=== PATIENT | male | born 1950 | race Caucasian/White ===

== ENCOUNTER 2017-08-24 05:16 | Emergency (ER) | payer OTHER ==
[~2017-08-24] VITALS: Ht 172.7 cm; Wt 86.7 kg
[~2017-08-24 05:16] MED LIST: EZET10TA41 PO; OLME40TA30 PO; OXYC-57 PO
[2017-08-24 05:19] VITALS: TEMP 36.6; Ht 172.7 cm; Wt 86.7 kg
[2017-08-24] MEDS ORDERED: AMLO-110 PO (05:44)
[2017-08-24] MEDS ORDERED: RANI150T3 PO (05:44)
[2017-08-24] MEDS ORDERED: ATOR-22 PO (05:44)
[2017-08-24] MEDS ORDERED: OPTIRAY 320 IV PRN (05:45)
[2017-08-24 06:04] LABS: BASO % 0.4 %; BASO ABS # 0.03 K/uL (0-0.2); EOS % 1.6 %; EOS ABS # 0.13 K/uL (0-0.5); HEMOGLOBIN 13.9 g/dL (14.0-18.0); IG# 0.01 K/uL (0.00-0.02); LYMPH ABS # 1.16 K/uL (1.2-3.4); MEAN CELL VOLUME 79.3 fL (80-100); MEAN CORPUSCULAR HEMOGLOBIN 26.9 pg (25-34); MEAN CORPUSCULAR HGB CONC 33.9 g/dl (32-36); MEAN PLATELET VOLUME 8.8 fL (7.4-10.4); MONO % 5.9 %; MONO ABS # 0.49 K/uL (0.11-0.59); NEUT ABS # 6.45 K/uL (1.4-6.5); PLATELET COUNT 269 K/uL (130-400); RED CELL DISTRIBUTION WIDTH CV 15.3 % (11.5-14.5); RED CELL DISTRIBUTION WIDTH SD 43.8 fL (36.4-46.3); WHITE BLOOD COUNT 8.27 K/uL (4.8-10.8)
[2017-08-24 06:21] LABS: ALBUMIN 3.7 gm/dl (3.4-5.0); CALCIUM 8.5 mg/dl (8.5-10.1); CREATININE 1.21 mg/dl (0.60-1.40); POTASSIUM 3.3 mmol/L (3.5-5.1)
[2017-08-24 06:24] LABS: TOTAL PROTEIN 7.7 gm/dl (6.4-8.2)
--- NOTE | 2017-08-24 06:39 | EMERGENCY ROOM VISIT NOTE ---
History Report prepared by Pamela: Jessica Gutierrez Under the Supervision of: Dr. Ragini Key D.O. First contact with patient: 05:23 Chief Complaint: ABDOMINAL PAIN Stated Complaint: LWR LFT SIDE ABDOMINAL PAIN History of Present Illness The patient is a 66 year old male who presents to the Emergency Room with complaints of left lower quadrant abdominal pain which began 3 hours ago. He reports a history of diverticulitis, noting that he last had an episode in 2015. The patient states that in February 2017, Dr. Patel reported he might be developing diverticulitis and to return if his symptoms worsened. The patient states that he was fine before he went to bed. He now reports that he is nauseous, but denies any fevers. Source of History: patient Onset: 3 hours ago Position: abdomen (LLQ) Quality: other (abdominal pain) Timing: other (persistent) Associated Symptoms: + nausea, No fevers Review of Systems See HPI for pertinent positives & negatives. A total of 10 systems reviewed and were otherwise negative. Past Medical & Surgical Diverticulitis, hypertension Social History Smoking Status: Never Smoker Alcohol Use: none Marital Status: Housing Status: lives with significant other Current/Historical Medications Scheduled Amlodipine (Norvasc), 5 MG PO QAM Atorvastatin (Lipitor), 20 MG PO HS Ranitidine Hcl (Zantac), 150 MG PO BID Tamsulosin Hcl (Flomax), 0.4 MG PO HS Scheduled PRN Oxycodone/Acetaminophen 5MG/325MG (Percocet 5MG/325MG), 1 TAB PO Q6H PRN for Pain Allergies Coded Allergies: [place] (Verified Allergy, Severe, MIGRAINE GERMAIN, DEYDRATION, ER VISIT, ) [place] (Verified Allergy, Severe, MIGRAINE GERMAIN, DEHYDRATION, ER VISIT, 08/24) Aspirin (Verified Adverse Reaction, Intermediate, CONFUSION, 08/24/17) Uncoded Allergies: [place] (Allergy, Severe, MIGRAINE, DEHYDRATION, ER VISIT, 08/24/17) Physical Exam Vital Signs Date Time Temp Pulse Resp B/P (MAP) Pulse Ox O2 Delivery O2 Flow Rate FiO2 08/24/17 10:02 75 18 155/62 98 08/24/17 08:14 80 17 159/86 97 Room Air 08/24/17 06:44 76 18 172/96 97 Room Air 08/24/17 05:19 36.6 78 20 177/90 97 Room Air Physical Exam HEENT: Head - normocephalic and atraumatic Pupils are equal, round, and reactive to light. Extraocular eye muscles are intact, and sclera are anicteric. Nose - moist nasal mucosa without discharge. Mouth - moist buccal mucosa. Oropharynx is nonerythematous and there is no tonsillar exudate or edema noted. Neck: Supple; no JVD, nuchal rigidity, cervical lymphadenopathy. Heart: Regular rate and rhythm. There is a normal S1 and S2 with no murmurs, clicks, or gallops appreciated. Lungs: Clear to auscultation bilaterally with no wheezes, rales, or rhonchi. Abdomen: Soft, left lower quadrant pain to palpation, nondistended, with good bowel sounds. There is no CVA tenderness. There are no palpable pulsatile masses or hepatosplenomegaly. There is no guarding, rigidity, or rebound noted. Extremities: No evidence of cyanosis, clubbing, or edema. There are easily palpable peripheral pulses. Skin: warm and dry with good turgor and no rashes. Medical Decision & Procedures ER Provider Diagnostic Interpretation: CT scan of the abdomen/pelvis: Pending Laboratory Results 08/24/17 05:50 Red Blood Count 5.17, Mean Corpuscular Volume 79.3, Mean Corpuscular Hemoglobin 26.9, Mean Corpuscular Hemoglobin Concent 33.9, Mean Platelet Volume 8.8, Neutrophils (%) (Auto) 78.0, Lymphocytes (%) (Auto) 14.0, Monocytes (%) (Auto) 5.9, Eosinophils (%) (Auto) 1.6, Basophils (%) (Auto) 0.4, Neutrophils # (Auto) 6.45, Lymphocytes # (Auto) 1.16, Monocytes # (Auto) 0.49, Eosinophils # (Auto) 0.13, Basophils # (Auto) 0.03 08/24/17 05:50 Test 08/24/17 05:35 08/24/17 05:50 Urine Color YELLOW Urine Appearance CLEAR (CLEAR) Urine pH 6.0 (4.5-7.5) Urine Specific [place] 1.015 (1.000-1.030) Urine Protein NEG (NEG) Urine Glucose (UA) NEG (NEG) Urine Ketones NEG (NEG) Urine Occult Blood 1+ (NEG) Urine Nitrite NEG (NEG) Urine Bilirubin NEG (NEG) Urine Urobilinogen NEG (NEG) Urine Leukocyte Esterase NEG (NEG) Urine WBC (Auto) 0 /hpf (0-5) Urine RBC (Auto) 0-4 /hpf (0-4) Urine Hyaline Casts (Auto) 0 /lpf (0-5) Urine Epithelial Cells (Auto) 0-5 /lpf (0-5) Urine Bacteria (Auto) NEG (NEG) White Blood Count 8.27 K/uL (4.8-10.8) Red Blood Count 5.17 M/uL (4.7-6.1) Hemoglobin 13.9 g/dL (14.0-18.0) Hematocrit 41.0 % (42-52) Mean Corpuscular Volume 79.3 fL (80-100) Mean Corpuscular Hemoglobin 26.9 pg (25-34) Mean Corpuscular Hemoglobin Concent 33.9 g/dl (32-36) Platelet Count 269 K/uL (130-400) Mean Platelet Volume 8.8 fL (7.4-10.4) Neutrophils (%) (Auto) 78.0 % Lymphocytes (%) (Auto) 14.0 % Monocytes (%) (Auto) 5.9 % Eosinophils (%) (Auto) 1.6 % Basophils (%) (Auto) 0.4 % Neutrophils # (Auto) 6.45 K/uL (1.4-6.5) Lymphocytes # (Auto) 1.16 K/uL (1.2-3.4) Monocytes # (Auto) 0.49 K/uL (0.11-0.59) Eosinophils # (Auto) 0.13 K/uL (0-0.5) Basophils # (Auto) 0.03 K/uL (0-0.2) RDW Standard Deviation 43.8 fL (36.4-46.3) RDW Coefficient of Variation 15.3 % (11.5-14.5) Immature Granulocyte % (Auto) 0.1 % Immature Granulocyte # (Auto) 0.01 K/uL (0.00-0.02) Anion Gap 4.0 mmol/L (3-11) Est Creatinine Clear Calc Drug Dose 62.6 ml/min Estimated GFR () 70.9 Estimated GFR (Non- 61.1 BUN/Creatinine Ratio 17.3 (10-20) Calcium Level 8.5 mg/dl (8.5-10.1) Total Bilirubin 0.6 mg/dl (0.2-1) Direct Bilirubin 0.1 mg/dl (0-0.2) Aspartate Amino Transf (AST/SGOT) 26 U/L (15-37) Alanine Aminotransferase (ALT/SGPT) 31 U/L (12-78) Alkaline Phosphatase 83 U/L (45-117) Total Protein 7.7 gm/dl (6.4-8.2) Albumin 3.7 gm/dl (3.4-5.0) Procedure ED Course 0524: Past medical records reviewed. The patient was evaluated in room B3. A complete history and physical exam was performed. IV lock was established. Labs were drawn as above. 0545: The patient declined wanting anything for pain. He went for CT scan of the abdomen/pelvis. 0630: The patient was signed off to Dr. Laura at the change of shift. Medical Decision The patient is a 66 year old male who presents to the ED with abdominal pain. Differential diagnosis includes diverticulitis, colitis, cystitis, ureteral colic, and pyelonephritis. Lab results showed: urine positive for +1 blood, glucose 108, normal LFTs, BUN 21, creatinine 1.2, potassium 3.3., normal white count, and stable H&H. Cystic avgyo-dcey-xpz male patient presents to the emergency department with left lower quadrant abdominal pain that started suddenly. The patient has a history of diverticulitis and believes that may be what is occurring again. He denies any constipation, diarrhea or associated symptoms. He had been told by a previous physician that if he were to develop the symptoms again that he should seek attention right away because he previously had a diverticular abscess. Laboratory studies were fairly unremarkable. The patient will go for CT scan of the abdomen/pelvis. The case was signed out to Dr. Castaneda change of shift awaiting the results of the CAT scan. Medication Reconcilliation Current Medication List: was personally reviewed by me Blood Pressure Screening Patient's blood pressure: Elevated blood pressure Impression Primary Impression: Abdominal pain, left lower quadrant Scribe Attestation The scribe's documentation has been prepared under my direction and personally reviewed by me in its entirety. I confirm that the note above accurately reflects all work, treatment, procedures, and medical decision making performed by me. Departure Information Prescriptions Tamsulosin Hcl (FLOMAX) 0.4 Mg Cap 0.4 MG PO HS for 10 Days, #10 CAP Prov: Latrell Laura D.O. 08/24/17 Oxycodone/Acetaminophen 5MG/325MG (PERCOCET 5MG/325MG) Tab 1 TAB PO Q6H Y for Pain, #20 TAB Prov: Latrell Laura D.O. 08/24/17 Referrals Alejo Jorgensen (PCP) Patient Instructions My [facility]
--- NOTE | 2017-08-24 07:04 | DIAGNOSTIC IMAGING REPORT ---
ABD/PELVIS IV CONTRAST ONLY CLINICAL HISTORY: 66 years-old Male presenting with left lower quadrant abdominal pain, clinical concern for diverticulitis.. TECHNIQUE: Multidetector CT of the abdomen and pelvis was performed after the administration of intravenous contrast. IV contrast: 93 mL of Optiray 320. A dose lowering technique was used consistent with the principles of ALARA (as low as reasonably achievable). COMPARISON: None. CT DOSE (mGy.cm): The estimated cumulative dose is 457.47 mGy.cm. FINDINGS: Market Research Intern topogram: Unremarkable. Lung bases: Minimal basilar opacities, likely atelectasis. Solid peripheral nodules in the right middle lobe, the largest measuring 9 mm (series 3 image 7). Normal heart size. No pericardial or pleural effusion. Liver: Normal morphology. Well-defined hypodensities in the liver likely hepatic cysts. Patent hepatic vasculature. Biliary: No intrahepatic or extrahepatic biliary ductal dilatation. Normal gallbladder. Pancreas: Normal. Spleen: Normal. Adrenal glands: 14 mm indeterminate nodule in the lateral limb of the left adrenal gland. Right adrenal gland normal. Kidneys and ureters: Exophytic prominent hypodensity arising from the left kidney, which may contain a single thin septation (series 3 image 149). Mild left pelvocaliectasis and urothelial thickening with periureteral and perihilar fat stranding. An obstructing 8 mm calculus is noted at the proximal left ureter immediately distal to the left ureteropelvic junction. A nonobstructing lower pole 6 mm calculus is also noted. The remainder of the left ureter is normal. The right kidney is normal. No right renal calculi. Normal right ureter. Bladder: Normal. No bladder calculi. Pelvic organs: Prostate enlargement likely secondary to benign prostatic hyperplasia. Bowel: Diverticulosis of the sigmoid colon with wall thickening. No pericolonic fat stranding. Few scattered additional colonic diverticula. The appendix is normal. No bowel obstruction. Small hiatal hernia. Peritoneal cavity: No free fluid or intraperitoneal gas. Lymph nodes: No enlarged lymph nodes in the abdomen or pelvis. Vasculature: Atherosclerosis of the normal caliber abdominal aorta. IVC patent. Abdominal wall: Diastasis of the rectus abdominis. Bilateral gynecomastia. Musculoskeletal: Degenerative changes of the spine. Pars defects of L4 noted. IMPRESSION: 1. Obstructing 8 mm calculus at the proximal left ureter immediately distal to the left ureteropelvic junction. This results in mild left hydronephrosis and significant reactive changes of the urothelium. 2. Nonobstructing 6 mm left renal calculus. 3. Diverticulosis without evidence of chronic diverticular disease/circular muscle hyperplasia. No convincing evidence of acute diverticulitis. 4. 14 mm indeterminate left adrenal gland nodule. This is likely a benign adenoma but is incompletely characterized on this examination. 5. Solid right middle lobe pulmonary nodules, the largest measuring 9 mm. Follow-up per [place] Society 2017 recommendations below. Please refer to below summary of Fleischner Society 2017 recommendations for follow-up of incidental CT nodules (H Demar et al. Guidelines for management of incidental pulmonary nodules detected on CT images: From the Fleischner Society 2017. Radiology 2017; 284: 228-243.) SOLID NODULES Single nodule; size < 6 mm * Low risk patients: No routine follow-up * High risk patients: Optional CT at 12 months Single nodule; size 6-8 mm * Low risk patients: CT at 6-12 months, then consider CT at 18-24 months * High risk patients: CT at 6-12 months, then at 18-24 months Single nodule; size > 8 mm * Either low or high risk patients: Considered CT at 3 months, PET/CT, or tissue sampling Multiple nodules; size < 6 mm * Low risk patients: No routine follow up * High risk patients: Optional CT at 12 months Multiple nodules; size 6-8 mm * Low risk patients: CT at 3-6 months, then consider CT at 18-24 months * High risk patients: CT at 3-6 months, then at 18-24 months Multiple nodules; size > 8 mm * Low risk patients: CT at 3-6 months, then consider at 18-24 months * High risk patients: CT at 3-6 months, then at 18-24 months SUBSOLID NODULES Single ground-glass nodule * Nodule size < 6 mm: No routine follow-up * Nodule size > or = 6 mm: CT at 6-12 months to confirm persistence, then CT every 2 years until 5 years Single part-solid nodule * Nodule size < 6 mm: No routine follow-up * Nodules size > or = 6 mm: CT at 3-6 months to confirm persistence. If unchanged and solid component remains < 6 mm, annual CT should be performed for 5 years Multiple nodules * Nodule size < 6 mm: CT at 3-6 months. If stable, consider CT at 2 and 4 years. * Nodules size > or = 6 mm: CT at 3-6 months. Subsequent management based on the most suspicious nodule(s) NOTE: These guidelines apply to incidental nodules. These guidelines do not apply to patients younger than 35 years, immunocompromised patients, or patients with cancer. * Low risk patients: Minimal or absent history of smoking and/or other known risk factors * High risk patients: History of smoking, exposure to other carcinogens, emphysema, fibrosis, upper lobe location, family history of lung cancer, etc. If a nodule up to 8 mm is partly solid or is ground glass, further follow-up is required after 24 months to exclude possible slow growing adenocarcinoma. Electronically signed by: Imtiaz Vail M.D. 08/24/2017 7:03 AM Dictated Date/Time: 08/24/2017 6:54 AM
--- NOTE | 2017-08-24 09:40 | EMERGENCY ROOM VISIT NOTE ---
ED Visit Note This is a 66-year-old male who presents to the ED and was signed out to me by Dr. Key. CT scan was pending. Patient's blood work was unremarkable as was urinalysis and chemistry panel. CT scan result as noted below. IMPRESSION: 1. Obstructing 8 mm calculus at the proximal left ureter immediately distal to the left ureteropelvic junction. This results in mild left hydronephrosis and significant reactive changes of the urothelium. 2. Nonobstructing 6 mm left renal calculus. 3. Diverticulosis without evidence of chronic diverticular disease/circular muscle hyperplasia. No convincing evidence of acute diverticulitis. 4. 14 mm indeterminate left adrenal gland nodule. This is likely a benign adenoma but is incompletely characterized on this examination. 5. Solid right middle lobe pulmonary nodules, the largest measuring 9 mm. Follow-up per [place] [employer] 2017 recommendations below. Please refer to below summary of Fleischner Society 2017 recommendations for follow-up of incidental CT nodules (H Demar et al. Guidelines for management of incidental pulmonary nodules detected on CT images: From the Fleischner Society 2017. Radiology 2017; 284: 228-243.) SOLID NODULES Single nodule; size < 6 mm * Low risk patients: No routine follow-up * High risk patients: Optional CT at 12 months Single nodule; size 6-8 mm * Low risk patients: CT at 6-12 months, then consider CT at 18-24 months * High risk patients: CT at 6-12 months, then at 18-24 months Single nodule; size > 8 mm * Either low or high risk patients: Considered CT at 3 months, PET/CT, or tissue sampling The patient was told the results of the test. He was comfortable. I spoke with Debra Bailey from Dr. Abarca's office. The patient will be given an appointment. Their office will call him for follow-up. He was felt to be stable for discharge. The patient was discharged with a prescription for Percocet, Flomax and a urine strainer. He was also advised to follow-up with family doctor with regards to follow-up on the lung nodule. The patient was not having any symptoms or discomfort at the time of his disposition.
[2017-08-24] MEDS ORDERED: OXYC-57 PO (09:44)
[2017-08-24] MEDS ORDERED: TAMS0.4C38 PO (09:44)
[2017-08-24 10:02] VITALS: BP 155/62; PULSE 75; O2SAT 98
== END 2017-08-24 10:05 | disposition home or self-care (01) ==
LOC: C.EDB 05:17
DX: R10.32 Left lower quadrant pain (principal); Z79.899 Other long term (current) drug therapy; Z88.6 Allergy status to analgesic agent; Z91.018 Allergy to other foods

== ENCOUNTER → 2017-09-04 | Outpatient (CLI) | payer OTHER ==
[~2017-09-04] MED LIST changes: +AMLO-110 PO; +ATOR-22 PO; -EZET10TA41 PO; -OLME40TA30 PO; +TAMS0.4C38 PO
--- NOTE | 2017-09-04 16:06 | DIAGNOSTIC IMAGING REPORT ---
TWO VIEW CHEST CLINICAL HISTORY: Nephrolithiasis. FINDINGS: PA and lateral chest radiographs are compared to study dated 08/11/2006. The cardiomediastinal silhouette is unremarkable. There is atherosclerotic calcification of the thoracic aorta. The lungs and pleural spaces are clear. There is no pneumothorax. The skeletal structures are osteopenic. The bony thorax appears intact. A left shoulder arthroplasty is in place. Degenerative changes noted throughout the thoracic spine. IMPRESSION: No active disease in the chest. Electronically signed by: Charles Tenorio M.D. 09/04/2017 4:05 PM Dictated Date/Time: 09/04/2017 4:04 PM
[2017-09-04 16:13] LABS: BASO % 0.3 %; BASO ABS # 0.02 K/uL (0-0.2); EOS % 1.5 %; EOS ABS # 0.09 K/uL (0-0.5); HEMATOCRIT 40.1 % (42-52); HEMOGLOBIN 13.7 g/dL (14.0-18.0); LYMPH % 23.2 %; LYMPH ABS # 1.35 K/uL (1.2-3.4); MEAN CORPUSCULAR HEMOGLOBIN 27.3 pg (25-34); MEAN CORPUSCULAR HGB CONC 34.2 g/dl (32-36); MEAN PLATELET VOLUME 9.2 fL (7.4-10.4); MONO % 7.9 %; MONO ABS # 0.46 K/uL (0.11-0.59); NEUT % 67.1 %; PLATELET COUNT 258 K/uL (130-400); RED CELL DISTRIBUTION WIDTH CV 15.5 % (11.5-14.5); RED CELL DISTRIBUTION WIDTH SD 45.3 fL (36.4-46.3); WHITE BLOOD COUNT 5.82 K/uL (4.8-10.8)
[2017-09-04 16:30] LABS: BLOOD UREA NITROGEN 18 mg/dl (7-18); CALCIUM 8.7 mg/dl (8.5-10.1); CARBON DIOXIDE 28 mmol/L (21-32); CREATININE 1.22 mg/dl (0.60-1.40); GLUCOSE 94 mg/dl (70-99); POTASSIUM 3.8 mmol/L (3.5-5.1); SODIUM 140 mmol/L (136-145)
== END ==
LOC: C.RAD 15:14
PROVIDERS: ATTEND Urology
DX: N20.0 Calculus of kidney (principal)

== ENCOUNTER 2017-09-23 09:25 | Day surgery (SDC) | payer OTHER ==
[2017-08-26 12:52] VITALS: BMI 28.0
[~2017-09-23] VITALS: Ht 174 cm; Wt 86.4 kg
[~2017-09-23 09:25] MED LIST changes: +ATROPINE SULFATE 0.1 MG/ML 5ML SYR IV PRN; +CIPROFLOXACIN / D5W 400 MG IV SCH; +EpHEDrine SULFATE INJ 50 MG/ML AMP IV PRN; +FENTANYL CITRATE INJ 50 MCG/1 ML 2 ML VIAL IV PRN; +LACTATED RINGER'S 1000ML 1,000 ML IV SCH; +ONDANSETRON INJ 2 MG/ML 2 ML VIAL IV PRN; -TAMS0.4C38 PO
[2017-09-23 10:03] VITALS: BP 159/95; PULSE 81; TEMP 36.6; O2SAT 95; Ht 174 cm; Wt 86.4 kg
[2017-09-23] MEDS ORDERED: FENTANYL CITRATE INJ 50 MCG/1 ML 2 ML VIAL ONE ×2 (10:07→11:01)
--- NOTE | 2017-09-23 10:22 | History & Physical Bridge Note ---
H&P Re-Evaluation Bridge Note: I have examined the patient, reviewed the History & Physical and in the interval since the performance of the History & Physical I have noted the following changes of clinical significance: No changes noted
[2017-09-23] MEDS ORDERED: Cysto-Conray II 17.2% 250ML BOTTLE ONE (10:24)
[2017-09-23] MEDS ORDERED: OXYCODONE/ACETAMINOPHEN 7.5-325 TAB PO PRN (10:30)
[2017-09-23] MEDS ORDERED: OXYC-57 PO (10:31)
[2017-09-23] MEDS ORDERED: PHEN-775 PO (10:32)
[2017-09-23] MEDS ORDERED: CIPR-255 PO (10:32)
--- NOTE | 2017-09-23 10:34 | Discharge Instructions ---
Discharge Instructions Date of Service September 23, 2017. Admission Reason for Admission: Nephrolithiasis Discharge Discharge Diagnosis / Problem: Left Stones Discharge Goals Goal(s): Decrease discomfort, Improve function Activity Recommendations Activity Limitations: resume your previous activity Lifting Limitations: gradually increase as tolerated Exercise/Sports Limitations: gradually increase as tolerated Shower/Bathe: no limitations . Instructions / Follow-Up Instructions / Follow-Up May have blood in urine. May have pelvic discomfort. May have pain or other issues. Call if any fevers or chills or other issues. Current Hospital Diet Patient's current hospital diet: Discharge Diet Recommended Diet: Regular Diet Procedures Procedures Performed: Cystoscopy with left ureteroscopy and stone treatment. Pending Studies Studies pending at discharge: no Medical Emergencies . Who to Call and When: Medical Emergencies: If at any time you feel your situation is an emergency, please call 911 immediately. . Non-Emergent Contact Non-Emergency issues call your: Primary Care Provider, Urologist Call Non-Emergent contact if: you have a fever, temperature is above 101, temperature is above 101.5, your pain is not controlled, your pain is worsening , your pain is unusual for you, your pain is concerning you . . "Provider Documentation" section prepared by Jorge Alberto Arteaga,. .
[2017-09-23] MEDS ORDERED: LIDOCAINE HCL 2% 2 ML VIAL (20MG/ML) ONE (10:50)
[2017-09-23] MEDS ORDERED: PROPOFOL IV EMULSION 10 MG/ML 20 ML VIAL ONE (10:50)
[2017-09-23] MEDS ORDERED: DEXAMETHASONE SOD INJ 4 MG/ML VIAL ONE (10:50)
[2017-09-23] MEDS ORDERED: EpHEDrine SULFATE INJ 50 MG/ML AMP ONE (10:50)
[2017-09-23] MEDS ORDERED: ONDANSETRON INJ 2 MG/ML 2 ML VIAL ONE (10:50)
--- NOTE | 2017-09-23 11:57 | [facility] Operative Report ---
Operative Report Operative Date September 23, 2017. Pre-Operative Diagnosis Left Stone Post-Operative Diagnosis Same Procedure(s) Performed Cystoscopy with Left Retrograde pyelogram, stent, Ureteroscopy, laser lithotripsy and stone basket extraction. Surgeon Chandler Estimated Blood Loss Minimal Findings Proximal Left stone with left renal stone Specimens Stone fragment. Drains 6 Fr Multilength Anesthesia Type General Complication(s) none Disposition Recovery Room / PACU Indications Large obstructing left stone with left renal stones. Risks and benefits discussed. Description of Procedure Patient was consented and brought back to the operating room. Patient was placed under anesthesia in the supine position and moved to the dorsal lithotomy position. Patient was prepped and draped in the regular sterile fashion. A time out was completed. A 30degree Cystoscope was placed into the bladder and the entire bladder was examined. The UO's were identified. The UO was cannulized with a catheter and a retrograde pyelogram was completed. A wire was then placed. A strictured area was appreciated in the distal ureter. This was dilated to allow placement of a long rigid ureteroscope. This was taken into the distal ureter and a second wire was placed. The rigid scope was removed. A ureteral access sheath and second safety wire was placed. The flexible ureteroscope was taken into the left ureter. The entire ureter and renal pelvis were examined. The stones were identified. A laser fiber was selected and the stones were pulverized to dust and small fragments. Larger fragments were grasped and removed and sent for analysis. The entire area was once again examined. No residual large fragments or areas of concern were noted. The scope was slowly removed with the wire left in place. Contrast was placed through the scope for a pyelogram to assist in stent placement. The entire ureter was examined as the scope was slowly removed. No obstructions or other areas of concern were noted. The distal ureter had multiple areas where dilatation had been completed. No other findings. With the wire in place, it was backloaded onto the cystoscope, and a 6 Fr Double J stent was placed. It was confirmed with fluoroscopy. With the stent in place, the bladder was emptied. The scope was removed. The patient was cleaned, aroused from anesthesia, and transferred to the pacu in stable condition having tolerated the procedure well with no complications. I was present and participated in all aspects of the procedure. The patient will be monitored in the PACU until transferred. I attest to the content of the Intraoperative Record and any orders documented therein. Any exceptions are noted below.
--- NOTE | 2017-09-23 12:30 | DIAGNOSTIC IMAGING REPORT ---
RETROGRADE INCLUDES KUB HISTORY: LEFT LASER LITHOTRIPSY, STENT INSERTION FLUOROSCOPY TIME: 3 minutes and 52 seconds. FINDINGS: 4 fluoroscopic spot images were submitted for review. Initial images demonstrate retrograde opacification of the left renal collecting system. This is followed by placement of a guidewire into the left ureter and a left ureteral stent. The ureteral stent appears in good position. IMPRESSION: Fluoroscopy provided for left ureteral stent placement. Electronically signed by: Taj Watters M.D. 09/23/2017 12:29 PM Dictated Date/Time: 09/23/2017 12:28 PM
[2017-09-23 12:50] VITALS: BP 152/81; PULSE 64; TEMP 36.3; O2SAT 95
[2017-09-23 13:45] VITALS: BP 130/66; PULSE 56; TEMP 36.2; O2SAT 98
--- NOTE | 2017-09-23 13:48 | Anesthesiology Progress Note ---
Anesthesia Post Op Note Date & Time September 23, 2017 at 13:48 Vital Signs Pain Intensity: 0 Vital Signs Past 12 Hours Date Time Temp Pulse Resp B/P (MAP) Pulse Ox O2 Delivery O2 Flow Rate FiO2 09/23/17 13:45 36.2 56 18 130/66 98 Room Air 09/23/17 12:50 36.3 64 18 152/81 95 Room Air 09/23/17 12:40 36.4 09/23/17 12:37 68 16 94 09/23/17 12:37 67 09/23/17 12:35 147/75 09/23/17 12:32 61 20 09/23/17 12:32 60 20 97 09/23/17 12:31 149/70 09/23/17 12:27 67 14 96 09/23/17 12:27 67 14 09/23/17 12:25 147/79 09/23/17 12:22 70 10 100 09/23/17 12:22 70 10 09/23/17 12:20 135/77 09/23/17 12:17 58 14 99 09/23/17 12:17 58 09/23/17 12:15 130/78 09/23/17 12:12 65 11 100 09/23/17 12:12 63 11 09/23/17 12:10 141/79 09/23/17 12:07 66 12 09/23/17 12:07 65 12 140/79 100 09/23/17 12:02 36.1 63 16 140/79 100 Oxymask 5 09/23/17 10:03 36.6 81 18 159/95 (116) 95 Room Air Notes Mental Status: alert / awake / arousable, participated in evaluation Pt Amnestic to Procedure: Yes Nausea / Vomiting: adequately controlled Pain: adequately controlled Airway Patency, RR, SpO2: stable & adequate BP & HR: stable & adequate Hydration State: stable & adequate Anesthetic Complications: no major complications apparent
[2017-09-23 14:25] VITALS: BP 147/72; PULSE 89; TEMP 36.8; O2SAT 98
== END 2017-09-23 15:05 | disposition home or self-care (01) ==
LOC: C.ACU 09:25
PROVIDERS: ATTEND Urology
DX: N20.1 Calculus of ureter (principal); M19.90 Unspecified osteoarthritis, unspecified site; E78.00 Pure hypercholesterolemia, unspecified; E78.5 Hyperlipidemia, unspecified; K21.9 Gastro-esophageal reflux disease without esophagitis; I10 Essential (primary) hypertension; Z82.49 Family history of ischemic heart disease and other diseases of the circulatory system; Z83.3 Family history of diabetes mellitus; Z79.899 Other long term (current) drug therapy; Z88.6 Allergy status to analgesic agent

== ENCOUNTER 2022-05-08 05:04 | Observation (INO) ==
--- NOTE | 2022-04-13 13:46 | PAT Medication Instructions ---
Medication Instructions Date of Service April 13, 2022 Home Medications atorvastatin 20 mg tablet 20 mg PO QAM amlodipine 5 mg tablet 5 mg PO QAM albuterol sulfate 90 mcg/actuation aerosol inhaler 2 puff inhalation Q6H PRN famotidine 20 mg tablet (Acid Continuous Churn Buttermaker (famotidine)) 20 mg PO QAM PRN fluticasone propionate 50 mcg/actuation nasal spray,suspension (Allergy Relief (fluticasone)) 1 spray intranasal QAM PRN meloxicam 15 mg tablet 15 mg PO QAM ascorbic acid (vitamin C) 500 mg chewable tablet (Vitamin C) 500 mg PO QAM ibuprofen 100 mg tablet 200 mg PO Q6H PRN multivitamin with minerals (Men's One Daily tablet) 1 tab PO QAM zinc 50 mg tablet 50 mg PO QAM ASK your surgeon for instructions meloxicam 15 mg tablet 15 mg PO QAM ibuprofen 100 mg tablet 200 mg PO Q6H PRN DO NOT take the morning of surgery ascorbic acid (vitamin C) 500 mg chewable tablet (Vitamin C) 500 mg PO QAM multivitamin with minerals (Men's One Daily tablet) 1 tab PO QAM zinc 50 mg tablet 50 mg PO QAM Take morning of surgery With a small sip of water, OTHERWISE NOTHING TO EAT OR DRINK AFTER MIDNIGHT: atorvastatin 20 mg tablet 20 mg PO QAM amlodipine 5 mg tablet 5 mg PO QAM albuterol sulfate 90 mcg/actuation aerosol inhaler 2 puff inhalation Q6H PRN(use if needed; please bring with you to hospital day of surgery if possible) famotidine 20 mg tablet (Acid Continuous Churn Buttermaker (famotidine)) 20 mg PO QAM PRN(if needed) fluticasone propionate 50 mcg/actuation nasal spray,suspension (Allergy Relief (fluticasone)) 1 spray intranasal QAM PRN(if needed) Take evening before surgery albuterol sulfate 90 mcg/actuation aerosol inhaler 2 puff inhalation Q6H PRN(if needed) Other Notes If you have any questions please call us at [phone] or [phone] or [phone] or [phone]
--- NOTE | 2022-04-16 12:53 | Anesthesiology Consultation ---
Date of Service April 16, 2022 Assessment & Plan (1) Encounter for pre-operative examination: - Outpatient joint assessment: Patient is currently scheduled for inpatient pathway. If re-evaluated pending system levels during current pandemic/surgeon requests outpatient pathway, patient is acceptable candidate for outpatient joint program from anesthesia standpoint pending surgeon's office assessment of pt motivation/support/completion of same day joint program preop requirements. Chart Review Chart Review: Acceptable Risk for Surgery and Patient seen in Pre Admission Testing Teaching & Discussion Pre-Anesthesia Teaching/Discussion Notes: Instructed NPO after midnight before surgery, except medications with 15 cc of water. Medication instructions provided according to the PAT guidelines. History Surgery Operation Date: 05/08/22 11:40 Proposed Procedures p Right Anterior Total Hip Arthroplasty - Tor Tenorio DO Height/Weight Height: 5 ft 8 in Weight: 88.904 kg Allergies Allergy/AdvReac Type Severity Reaction Status Date / Time lemon AdvReac Severe Migraine Verified 04/13/22 11:20 [place] AdvReac Severe Migraine Verified 04/13/22 11:20 orange AdvReac Severe Migraine Verified 04/13/22 11:20 aspirin AdvReac Intermediate Confusion Verified 04/13/22 11:20 [place] [employer] AdvReac Unknown Migraine Verified 04/14/22 13:39 Medications Home Medications Medication Instructions Recorded Confirmed Last Taken atorvastatin 20 mg tablet 20 mg PO QAM #0 tabs 08/24/17 04/13/22 01/16/18 23:00 amlodipine 5 mg tablet 5 mg PO QAM 01/04/18 04/13/22 01/17/18 10:00 albuterol sulfate 90 mcg/actuation 2 puff inhalation Q6H PRN 03/05/22 04/13/22 Unknown aerosol inhaler Shortness Of Breath famotidine 20 mg tablet (Acid 20 mg PO QAM PRN Acid Reflux 03/05/22 04/13/22 Unknown Notched Blade Loader (famotidine)) fluticasone propionate 50 1 spray intranasal QAM PRN 03/05/22 04/13/22 Unknown mcg/actuation nasal Congestion spray,suspension (Allergy Relief (fluticasone)) meloxicam 15 mg tablet 15 mg PO QAM 03/05/22 04/13/22 Unknown ascorbic acid (vitamin C) 500 mg 500 mg PO QAM 04/13/22 04/13/22 Unknown chewable tablet (Vitamin C) ibuprofen 100 mg tablet 200 mg PO Q6H PRN Pain 04/13/22 04/13/22 Unknown multivitamin with minerals (Men's 1 tab PO QAM 04/13/22 04/13/22 Unknown One Daily tablet) zinc 50 mg tablet 50 mg PO QAM 04/13/22 04/13/22 Unknown Past Medical History Medical History (Updated 04/16/22 @ 13:06 by Soo Pinto PA-C) 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 Exercise / Class Metabolic Activity II 4-5 Yardwork/Stairs/Walk up hill (denies CP or SOB with 1 FOS) Past Family History Family History Father Heart disease Mother Hypertension Diabetes Past Surgical History Surgical History (Updated 04/16/22 @ 13:06 by Soo Pinto PA-C) H/O abdominal surgery childhood History of carpal tunnel release rt. History of colonoscopy History of cystoscopy History of detached retina repair History of esophagogastroduodenoscopy (EGD) History of herniorrhaphy History of tonsillectomy History of tooth extraction History of total shoulder replacement Left (2005) Past Anesthesia History No Hx of Anesthesia Complications and No Family Hx of Anesthesia Complications History of PONV No Hx of PONV and No Hx of Motion Sickness Social History Smoking Status: Never smoker Do You Dip or Chew Tobacco: No Hx Alcohol Use: No Hx Substance Use: No substance use type: does not use Review of Systems Occasionally wakes at night choking when experiencing post nasal drip, ongoing x yrs; denies change or worsening; denies h/o snoring or witnessed apneas. Patient denies chest pain, shortness of breath, dyspnea on exertion, fever, chills, cough, wheezing, or palpitations. Physical Exam Vital Signs Vitals BP 148/78 P 77 TEMP 98.5 SP02 96% on RA RESP 18 Physical Full cervical extension range of motion without pain TMD 3.5 finger breadths Mallampati Score 2 Dentition: intact, chipped tooth right back, permanent bridge front, implants right upper side and left lower side; denies loose teeth Lungs: normal respiratory effort. Clear throughout to auscultation, no adventitious breath sounds Cardiac: regular rate and rhythm, no murmurs noted Carotid arteries: negative bruit bilat Lab Results Anesthesia Preop Results Results Anesthesia Widget: WBC 10.44 K/ul (4.8-10.8) 04/16/22 Hgb 14.0 g/dl (14.0-18.0) 04/16/22 Hct 41.6 % (40.1-51.0) 04/16/22 Plt 288 K/uL (130-400) 04/16/22 Na 139 mmol/L (136-145) 04/16/22 K 4.1 mmol/L (3.5-5.1) 04/16/22 Cl 103 mmol/L (98-107) 04/16/22 CO2 29 mmol/L (21-32) 04/16/22 BUN 15 mg/dl (6-23) 04/16/22 Creat 1.03 mg/dl (0.6-1.4) 04/16/22 Glucose Level 96 mg/dl (70-99(Fasting)) 04/16/22 PT 10.6 Seconds (9.0-12.0) 04/16/22 PTT 31.0 Seconds (21.0-31.0) 04/16/22 INR 1.0 (0.9-1.1) 04/16/22 Blood Type O Positive 04/16/22 Antibody Screen NEGATIVE 04/16/22 Testing Electrocardiogram Date: 04/16/22 NSR, rate 72 bpm Chest X-Ray Date: 09/11/21 No evidence of acute cardiopulmonary disease COVID-19 Risk Screen Screening Information COVID-19 Screen Date: 04/16/22 Exposure 21 Days Family/Household +COVID Last 21 Days: No Exposure 10 Days Any COVID Exposure Last 10 Days: No Symptoms Last 10 Days Experienced COVID Sx Last 10 Days: No + COVID 0-90 Days COVID + in Last 0-90 Days: No
--- NOTE | 2022-05-07 13:58 | History & Physical Report ---
Date of Service May 07, 2022 Assessment & Plan (1) Osteoarthritis of hip: We will proceed with a right anterior total arthroplasty. Postoperatively he will be in our outpatient joint protocol. He will be placed on aspirin for DVT prophylaxis. He will be followed up by [facility] the following day. History of Present Illness Chief Complaint: Osteoarthritis of the right hip. Primary Care Provider: Alejo Jorgensen PA-C Matias is a 71-year-old male who has had increasing and more debilitating right hip pain over the course of the past year. No injury, falls, or trauma. He has fairly significant groin and buttock pain. It is progressively getting to point where he has been using a walker to ambulate and even crutches. He is at the point now where he has a difficult time doing his activities of daily living. X-rays and clinical examination been diagnostic for advanced osteoarthritis of the right hip. After failing conservative treatment, he has elected proceed with a right anterior total hip arthroplasty.. Allergies Allergy/AdvReac Type Severity Reaction Status Date / Time lemon AdvReac Severe Migraine Verified 04/13/22 11:20 [place] AdvReac Severe Migraine Verified 04/13/22 11:20 orange AdvReac Severe Migraine Verified 04/13/22 11:20 aspirin AdvReac Intermediate Confusion Verified 04/13/22 11:20 [place] [employer] AdvReac Unknown Migraine Verified 04/14/22 13:39 Home Medications Medication Instructions Recorded Confirmed Type atorvastatin 20 mg tablet 20 mg PO QAM #0 tabs 08/24/17 04/13/22 History amlodipine 5 mg tablet 5 mg PO QAM 01/04/18 04/13/22 History albuterol sulfate 90 mcg/actuation 2 puff inhalation Q6H PRN 03/05/22 04/13/22 History aerosol inhaler Shortness Of Breath famotidine 20 mg tablet (Acid 20 mg PO QAM PRN Acid Reflux 03/05/22 04/13/22 History Novelty Chain Maker (famotidine)) fluticasone propionate 50 1 spray intranasal QAM PRN 03/05/22 04/13/22 History mcg/actuation nasal Congestion spray,suspension (Allergy Relief (fluticasone)) meloxicam 15 mg tablet 15 mg PO QAM 03/05/22 04/13/22 History ascorbic acid (vitamin C) 500 mg 500 mg PO QAM 04/13/22 04/13/22 History chewable tablet (Vitamin C) ibuprofen 100 mg tablet 200 mg PO Q6H PRN Pain 04/13/22 04/13/22 History multivitamin with minerals (Men's 1 tab PO QAM 04/13/22 04/13/22 History One Daily tablet) zinc 50 mg tablet 50 mg PO QAM 04/13/22 04/13/22 History Past Med/Surg History Medical History 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 History of colonoscopy History of cystoscopy History of detached retina repair History of esophagogastroduodenoscopy (EGD) History of herniorrhaphy History of tonsillectomy History of tooth extraction History of total shoulder replacement Left (2005) Family History Father Heart disease Mother Hypertension Diabetes Social History Smoking Status: Never smoker Second Hand Exposure: No; Hx Alcohol Use: No Hx Substance Use: No Preferred Language: Irish Communication Ability: Effective Groover Operator Required: No Beliefs That Will Affect Care: None marital status: Current Living Situation: Spouse and Family current occupational status: employed Feels Safe at Home: Yes Assistive Devices: Cane, Glasses, Walker and Other Review of Systems All systems reviewed & are unremarkable except as noted in HPI & below. Physical Exam On physical examination of the right hip, he has decreased range of motion. He has pain with forced internal and external rotation.. Constitutional WD/WN, vitals as above Eyes PERRL, conjunctivae normal, anicteric sclerae ENMT external ear and nose normal, oropharynx normal Neck trachea midline, no thyromegaly Respiratory normal respiratory effort, lungs clear to auscultation Cardiovascular RRR, no murmur, no edema Gastrointestinal (Abdomen) normal bowel sounds, soft, nontender, no hepatosplenomegaly Skin no rashes, warm and dry Psychiatric A+Ox3, euthymic affect Results & Data Results & Data Laboratory Results . Diagnostic Findings Postoperative x-rays of the right hip show the prosthesis to be in anatomic alignment without any evidence of fracture, desiccation, or loosening. PG Care Time/CCT Total # of Minutes Spent Total Time Spent with Patient: Total time spent is greater than 50% in coordination of care (as documented) at patient's floor/unit and/or counseling patient: Coding Level of Care Code None Diagnoses Osteoarthritis of hip M16.9
[2022-05-08] MEDS ORDERED: LR 60ML/HR IV SCH (06:00)
[2022-05-08] MEDS ORDERED: LR 500ML BOLUS, THEN 15ML/HR IV SCH (06:00)
[2022-05-08] MEDS ORDERED: ORTHO JOINT MIX INFIL SCH (06:00)
[2022-05-08] MEDS ORDERED: ACETAMINOPHEN 500 MG TAB PO SCH (06:00)
[2022-05-08] MEDS ORDERED: TRANEXAMIC ACID 1,000 MG **IV Intra-op IV SCH (06:00)
[2022-05-08] MEDS ORDERED: GABAPENTIN 300 MG CAP PO SCH (06:00)
[2022-05-08] MEDS ORDERED: dexAMETHasone 4 MG TAB PO SCH (06:00)
[2022-05-08] MEDS ORDERED: ceFAZolin 2000MG 2,000 MG/15 ML SYR IV SCH (06:00)
[2022-05-08] MEDS ORDERED: TRANEXAMIC ACID 1,000 MG **IV Pre-op IV SCH (06:00)
[2022-05-08] MEDS ORDERED: FAMOTIDINE 20 MG TAB PO SCH (06:00)
[2022-05-08] MEDS ORDERED: BUPIVACAINE 0.5 % 5 MG/1 ML PF 10ML VIAL ONE (06:32)
[2022-05-08] MEDS ORDERED: MIDAZOLAM HCL 1 MG/ML 2ML VIAL ONE (06:39)
--- NOTE | 2022-05-08 06:47 | History & Physical Bridge Note ---
Date of Service May 08, 2022 History & Physical Bridge Note I have examined the patient, reviewed the History & Physical and in the interval since the performance of the History & Physical I have noted the following changes of clinical significance: no changes noted
[2022-05-08] MEDS ORDERED: HYDROmorphone INJ 1 MG/ML SYRINGE IV PRN (06:55)
[2022-05-08] MEDS ORDERED: ePHEDrine sulfate 50 MG/ML AMP IV PRN (06:55)
[2022-05-08] MEDS ORDERED: ATROPINE SULFATE 0.1 MG/ML 10ML SYR IV PRN (06:55)
[2022-05-08] MEDS ORDERED: ORTHO JOINT ANESTHETIC ONE (06:58)
[2022-05-08] MEDS ORDERED: PROPOFOL IV EMULSION 10 MG/ML 20 ML VIAL IV ONE (07:21)
[2022-05-08] MEDS ORDERED: LIDOCAINE 2% MPF LOCAL 5 ML VIAL INFIL ONE (07:21)
[2022-05-08] MEDS ORDERED: PHENYLEPHRINE 100MCG/ML 5ML SYR ONE (07:22)
--- NOTE | 2022-05-08 08:11 | Operative Report ---
PG Post Operative Report Pre & Post Diagnosis Operation Date: 05/08/22 07:00 Pre-Op Diagnosis: DJD Right HIp Post-Op Diagnosis: DJD Right HIp I identified the patient and participated in the time-out.: Yes Procedure Operation Date: 05/08/22 07:00 Actual Procedures p Right Anterior Total Hip Arthroplasty(Right) - Tor Tenorio DO Surgeon Tor Tenorio DO Assistant Printer Floor Covering Tor Valdes PA-C Estimated Blood Loss 100 Findings Consistent with Post-Op Diagnosis Specimens Right femoral head Description of Procedure Implants used I used a ZimmerBiomet total hip arthroplasty system with a size 5 standard offset Avenir Complete stem, a 54 mm G7 cup with a 25mm screw, an E1 polyethylene liner, a 40 mm ceramic head with a +7 neck. Matias arrived at the hospital for the above procedure. He was seen in the preoperative holding area and the operative extremity was identified and signed. He was given a spinal anesthetic, a preoperative antibiotic, and TXA. He was then taken back to the operating room and laid on the table in the supine position. He was given basic sedation. The operative leg was secured to a Puristst leg positioner. The hip was then prepped and draped in sterile fashion. A timeout was done and the patient and the operative extremity was properly identified. An anterior approach was used. Dissection was taken down through the fascia and the tensor muscle belly was retracted laterally and the rectus was retracted medially. The circumflex vessels were identified and ligated. The capsule was then incised and tagged for later repair. The femoral neck was then cut and the femoral head was removed. The acetabulum was exposed. Time was spent doing a complete circumferential labral release. Sequential reaming of the acetabulum up to a size 53 reamer was done. Final reamings were done under fluoroscopy to ensure appropriate version. A Biomet 54 mm G7 cup was then impacted into place. A single 25 mm screw was placed. The E1 polyethylene liner was then snapped into place. Surrounding soft tissues were then injected with 100 cc of an orthopedic pain control cocktail. The proximal femur was then exposed. Sequential broaching up to a size 5 broach was done. Off that broach a size 40 head with a +7 neck was trialed. The hip was reduced and fluoroscopic images showed anatomic alignment of the implants in acceptable length. The broach was removed. The final size 5 standard offset Avenir Complete stem was then impacted into place. A ceramic 40 mm head with a +7 neck was then impacted onto the stem and the hip was reduced. Final fluoroscopic images showed anatomic alignment of the hip. The capsule was then closed with #1 Vicryl suture. A dilute betadyne lavage was then done for 3 minutes. The joint was then irrigated with normal saline solution. The fascia was closed with #1 PDS suture. Skin was closed with 2-0 Vicryl, georgina, and a Silverlon dressing. He was then transferred to a hospital bed and taken to the post anesthesia care unit in stable condition. He tolerated the procedure well. Tor Valdes PA-C, was present for the entire procedure. He was critical for patient positioning, prepping, draping, retraction exposure, wound closure and application of sterile dressing. I attest to the content of the Intraoperative Record and any orders documented therein. Any exceptions are noted below.
--- NOTE | 2022-05-08 08:43 | Fluoroscopy Report ---
FL hip RT 1V CLINICAL HISTORY: RT ANTEIROR HIP COMPARISON STUDY: None. FLUOROSCOPY TIME: 10 seconds. FINDINGS: 3 fluoroscopic spot images of the right hip demonstrate a right total hip arthroplasty. The hardware appears intact. No fracture or dislocation. IMPRESSION: Fluoroscopic assistance provided for right total hip arthroplasty. ACT 112: Negative or not required by law. Electronically signed by: Taj Watters M.D. 05/08/2022 8:42 AM
--- NOTE | 2022-05-08 08:56 | XRay Report ---
XR hip 1V RT w pelvis CLINICAL HISTORY: IN PACU - Post Surgical. Right hip implant. COMPARISON STUDY: None. FINDINGS: Status post a right total hip arthroplasty. The hardware appears intact. No fracture or dis location within the right hip. Skin georgina are noted. IMPRESSION: Status post right total hip arthroplasty. No evidence for hardware complication. ACT 112: Negative or not required by law. Electronically signed by: Taj Watters M.D. 05/08/2022 8:55 AM
--- NOTE | 2022-05-08 10:45 | Anesthesiology Progress Note ---
Date of Service May 08, 2022 Anesthesia Post Procedure Vital Signs Vital Signs: Temp Pulse Pulse Resp BP Pulse Ox O2 Del Method 05/08/22 10:25 83 21 117/73 95 Room Air 05/08/22 10:15 81 12 125/73 94 Room Air 05/08/22 10:05 86 14 134/78 99 Room Air 05/08/22 09:55 85 12 127/71 93 Room Air 05/08/22 09:45 87 12 120/70 94 Room Air 05/08/22 08:55 74 15 93/58 L 94 Oxymask 05/08/22 09:35 82 14 121/68 95 Room Air 05/08/22 09:25 81 12 117/66 98 Oxymask 05/08/22 09:15 36.3 C L 82 14 119/66 99 Oxymask 05/08/22 09:05 76 8 L 111/61 98 Oxymask 05/08/22 08:45 76 11 L 90/56 L 97 Oxymask 05/08/22 08:36 36.4 C L 77 16 113/71 94 Oxymask 05/08/22 05:36 37 C 103 H 20 153/94 H 96 Room Air O2 Flow Rate 05/08/22 10:25 05/08/22 10:15 05/08/22 10:05 05/08/22 09:55 05/08/22 09:45 05/08/22 08:55 3 05/08/22 09:35 05/08/22 09:25 2 05/08/22 09:15 3 05/08/22 09:05 3 05/08/22 08:45 3 05/08/22 08:36 5 05/08/22 05:36 Transfer of Care Handoff Completed per policy Notes Mental Status: alert / awake / arousable Patient Amnestic to Procedure: Yes Nausea / Vomiting: adequately controlled Pain: adequately controlled Airway Patency, RR, SpO2: stable & adequate BP & HR: stable & adequate Hydration State: stable & adequate Anesthetic Complications: no major complications apparent
[2022-05-08] MEDS ORDERED: ALBUTEROL HFA 8 GM INHALER INH PRN (11:01)
[2022-05-08] MEDS ORDERED: MAGNESIUM HYDROXIDE SUSP 30 ML UDC PO PRN (11:01)
[2022-05-08] MEDS ORDERED: FAMOTIDINE 20 MG TAB PO PRN (11:01)
[2022-05-08] MEDS ORDERED: METOCLOPRAMIDE HCL INJ 5 MG/ML 2 ML VIAL IV PRN (11:01)
[2022-05-08] MEDS ORDERED: ONDANSETRON INJ 2 MG/ML 2 ML VIAL IV PRN (11:01)
[2022-05-08] MEDS ORDERED: bisacodyL 10 MG SUPP PR PRN (11:01)
[2022-05-08] MEDS ORDERED: NALOXONE HCL 0.4 MG/1 ML VIAL/CARP IV PRN (11:01)
[2022-05-08] MEDS ORDERED: HYDROmorphone INJ 0.5 MG/0.5 ML SYR IV PRN (11:01)
[2022-05-08] MEDS ORDERED: FLUTICASONE PROPIONATE NA SPR 16 GM BTL PRN (11:01)
[2022-05-08] MEDS ORDERED: oxyCODONE HCL IR 5 MG TAB (IMMEDIATE RELEASE) PO PRN (11:01)
[2022-05-08] MEDS: SODIUM CHLORIDE 0.9% 1000ML 1,000 ML IV SCH ×2 (14:19→23:16)
[2022-05-08] MEDS: amLODIPine BESYLATE 5 MG TAB PO SCH (14:49)
[2022-05-08] MEDS: ASPIRIN 81 MG ECTAB PO SCH ×2 (14:49→20:08)
[2022-05-08] MEDS: ATORVASTATIN 20 MG TAB PO SCH (14:49)
[2022-05-08] MEDS: DOCUSATE SODIUM 100 MG CAP PO SCH ×2 (14:50→20:07)
[2022-05-08] MEDS: ACETAMINOPHEN 500 MG TAB PO SCH ×2 (14:50→21:48)
[2022-05-08] MEDS: KETOROLAC TROMETHAMINE 15 MG/ML VIAL IV SCH ×3 (14:50→23:17)
[2022-05-08] MEDS: MULTIVITAMIN TAB PO SCH (14:50)
[2022-05-08] MEDS: ceFAZolin 2000MG 2,000 MG/15 ML SYR IV SCH ×2 (14:51→21:53)
[2022-05-08] MEDS ORDERED: SENNA 8.6 MG TAB PO SCH (21:00)
[2022-05-09] MEDS: ACETAMINOPHEN 500 MG TAB PO SCH ×2 (06:13→07:55)
[2022-05-09] MEDS: KETOROLAC TROMETHAMINE 15 MG/ML VIAL IV SCH (06:14)
[2022-05-09] MEDS: amLODIPine BESYLATE 5 MG TAB PO SCH (07:54)
[2022-05-09] MEDS: MULTIVITAMIN TAB PO SCH (07:55)
[2022-05-09] MEDS: ASPIRIN 81 MG ECTAB PO SCH (07:55)
[2022-05-09] MEDS: ATORVASTATIN 20 MG TAB PO SCH (07:56)
[2022-05-09] MEDS: DOCUSATE SODIUM 100 MG CAP PO SCH (07:56)
[2022-05-09] MEDS ORDERED: dexAMETHasone 4 MG TAB PO SCH (08:00)
--- NOTE | 2022-05-09 08:01 | Orthopedic Progress Note ---
Date of Service May 09, 2022 Assessment & Plan (1) Status post right hip replacement: Overall he is doing very well. Is not having much pain in the right hip. He is on aspirin for DVT prophylaxis. He will be seen by physical therapy this morning for ambulation and range of motion exercises. He can be discharged home later today. He will follow with orthopedics in 2 weeks. Camacho Salcedo was seen and examined at bedside this morning. Overall is doing very well. He is not having much pain in the right hip. He has been up and ambulating around his room. He has no complaints.. Review of Systems All systems reviewed & are unremarkable except as noted in HPI & below. Physical Exam On physical examination of the right hip, the dressing is clean and dry. He can easily stand. He has active dorsiflexion plantarflexion of his right ankle.. Results & Data Results & Data Laboratory Results . Diagnostic Findings Postoperative x-rays of the right hip show the prosthesis to be in anatomic alignment without any evidence of fracture, desiccation, or loosening. PG Care Time/CCT Total # of Minutes Spent Total Time Spent with Patient: Total time spent is greater than 50% in coordination of care (as documented) at patient's floor/unit and/or counseling patient: Coding Level of Care Code 80172 Post Operative Follow-Up Diagnoses Status post right hip replacement Z96.641
--- NOTE | 2022-05-09 08:03 | Discharge Summary ---
Date of Service May 09, 2022 Admission HPI (Per Admitting) Matias is a 71-year-old male who has had increasing and more debilitating right hip pain over the course of the past year. No injury, falls, or trauma. He has fairly significant groin and buttock pain. It is progressively getting to point where he has been using a walker to ambulate and even crutches. He is at the point now where he has a difficult time doing his activities of daily living. X-rays and clinical examination been diagnostic for advanced osteoarthritis of the right hip. After failing conservative treatment, he has elected proceed with a right anterior total hip arthroplasty.. Admission Exam (Per Admitting) On physical examination of the right hip, he has decreased range of motion. He has pain with forced internal and external rotation.. Principal Diagnosis Same as "Discharge Diagnosis" noted below under Discharge Instructions. Discharge Exam On physical examination of the right hip, the dressing is clean and dry. He can easily stand. He has active dorsiflexion plantarflexion of his right ankle.. Discharge Data Procedures Performed Operation Date: 05/08/22 07:00 Actual Procedures p Right Anterior Total Hip Arthroplasty(Right) - Tor Tenorio DO Ordered Studies 05/08/22 07:00 FL hip RT 1V Routine Hospital Course (1) Status post right hip replacement: On May 08, 2022 Matias arrived at [facility] and underwent a right hip replacement without complication. He had a spinal anesthetic. Postoperatively he was started on aspirin for DVT prophylaxis and transferred to the general orthopedic floors. His hospital course was uneventful. On postop day #1, his vital signs were stable and his pain was well controlled. He was able to participate well with physical therapy doing ambulation and range of motion exercises. He was then discharged home. He will follow with orthopedics in 2 weeks. PG Care Time/CCT Total # of Minutes Spent Total Time Spent with Patient: Total time spent is greater than 50% in coordination of care (as documented) at patient's floor/unit and/or counseling patient: Discharge Plan Discharge Items Patient Disposition: Home - Home Health Services Reason For Visit: DJD Right HIp Discharge Diagnosis: Right hip replacement Activity: Per Instructions section Non-emergency contact: Surgeon Call non-emergency contact if: your wound has increased redness and your wound has increased drainage Follow-up/Referrals: Travis Sin MD [Primary Care Provider] - Diet: Regular Addtl Attending Provider Instructions: Activity and Therapy Recommendations: * If you are using [facility] then therapy will be provided at your home until they feel you have accomplished all of your goals. * If you are using [facility] then Physical Therapy will be provided until they feel you are ready to start Outpatient Physical Therapy. * If you are not using home therapy then Outpatient Physical Therapy should start about 3-5 days from your day of surgery. Therapy will last about 6-10 weeks * You were shown a series of exercises in the hospital. Do these exercises three times each day including the exercises you were shown in physical therapy. * Get up and walk several times each day.~ For the first four weeks, try not to stand or walk for more than one hour at a time. If you do stand or walk for more than one hour, you will not hurt anything, but your leg will likely swell.~~ * As you feel comfortable, you may change from the walker or crutches to a cane and~then to independent walking. Medications: * Narcotic You will likely be sent home from the hospital with a prescription for the narcotic pain medication that worked best throughout your stay. * Aspirin Most patients will be required to take Aspirin 81mg twice a day for 6 weeks after surgery. This is obtained [id number] and a prescription is not necessary. * Other medications may be prescribed for specific circumstances. If you have any questions, please call the office at . * Resume previous home medications unless otherwise instructed TEDs/Elastic Stockings: The white elastic stockings help limit swelling and prevent blood clots from forming in your legs. The more you wear them, the more they work. Wear them for six weeks. Dressing Care: Leave the Silverlon dressing in place for 7 days. After 7 days you may remove the dressing. If the incision is not draining then you may leave the georgina open to air. If there is a little bit of drainage or if the georgina are getting stuck on your clothing then cover the incision with a dry dressing. The georgina will be removed at your 2 week follow-up appointment. Showering: You may shower with the Silverlon dressing in place. Do not let the shower spray hit the dressing directly. Pat the Silverlon dressing dry. If the dressing becomes wet underneath, then simply remove the dressing. Keep the incision dry until you are 7 days out from the day of surgery. After 7 days you may remove the Silverlon dressing and shower with the georgina exposed. Let soapy water run over the georgina and pat them dry. Do not scrub or soak the incision. Things To Watch For: * Drainage from the incision site that occurs more than one week after your surgery. * Increased redness at the incision site. * Fever above 102 degrees Fahrenheit. * Unusual chest pain or shortness of breath. * Call [facility] at with any of the above problems Follow-Up Visit: Follow-up with Dr. Tenorio's PA (Tor Valdes) 2-3 weeks after your day of surgery. He will remove your georgina and answer any questions. If you have any additional questions or concerns, Dr Tenorio is usually in the office at the same time and will be available An appointment was probably scheduled when you signed-up for surgery in the office. If you have any questions call Office Instructions: More detailed instructions as well as Frequently Asked Questions were provided in a folder by our office when you signed-up for surgery. Please review these instructions when you get home. If you have any further questions or concerns, please feel free to call the office at [phone] Pending Studies at Discharge: No Stand-Alone Forms: My [facility], Smoking Cessation Medications and DC Order Prescriptions: New oxycodone-acetaminophen 5-325 mg tablet 1 tab PO Q6H PRN (Reason: pain) Qty: 30 0RF aspirin 81 mg Tablet,Delayed Release (Dr/Ec) 81 mg PO BID 42 Days Qty: 84 0RF Continued atorvastatin 20 mg Tablet 20 mg PO QAM Qty: 0 albuterol sulfate 90 mcg/actuation HFA aerosol inhaler 2 puff inhalation Q6H PRN (Reason: Shortness Of Breath) Label Comments: has not used much at all fluticasone propionate [Allergy Relief (fluticasone)] 50 mcg/actuation spray,suspension 1 spray intranasal QAM PRN (Reason: Congestion) Rx Instructions: administer into each nostril meloxicam 15 mg tablet 15 mg PO QAM famotidine [Acid Guide Domestic Tour (famotidine)] 20 mg tablet 20 mg PO QAM PRN (Reason: Acid Reflux) amlodipine 5 mg Tablet 5 mg PO QAM ascorbic acid (vitamin C) [Vitamin C] 500 mg Tablet,Chewable 500 mg PO QAM zinc 50 mg Tablet 50 mg PO QAM Men's One Daily Tablet 1 tab PO QAM Discontinued Motrin 100 mg Tablet 200 mg PO Q6H PRN (Reason: Pain) Discharge Orders: Discharge Order (Routine); Ordered 05/09/22 Ordered By: Tor Tenorio Admission Data Admit Date/Time: 05/08/22 08:37 Attending Provider: Tor Tenorio Admit Provider: Tor Tenorio Primary Care Provider: Travis Sin Other Providers: [facility]
== END 2022-05-09 11:32 | disposition home health service (06) ==
LOC: ASU 05:04 → PACUINP 05:04 → 3E 14:16